=== PATIENT | female | born 1980 | race Caucasian/White ===

== ENCOUNTER 2021-01-11 22:27 | Emergency (ER) | payer OTHER | END 2021-01-12 00:28 | LOC: ERS 22:27 | DX: Z04.1 Encounter for examination and observation following transport accident (principal); F10.129 Alcohol abuse with intoxication, unspecified; V49.9XXA Car occupant (driver) (passenger) injured in unspecified traffic accident, initial encounter | CPT/HCPCS: 99283 ==